=== PATIENT | female | born 1995 | race African-American/Black ===

== ENCOUNTER 2017-06-14 14:01 | Emergency (ER) | payer OTHER ==
[~2017-06-14] VITALS: Ht 157.5 cm; Wt 116.4 kg
[~2017-06-14 14:01] MED LIST: DIPH25 PO; NOCURR
[2017-06-14 17:30] VITALS: BP 125/74
== END 2017-06-14 17:50 | disposition home or self-care (01) ==
LOC: EMS 14:01
DX: J01.90 Acute sinusitis, unspecified (principal); R51 Headache
CPT/HCPCS: 99283

== ENCOUNTER 2018-10-19 10:42 | Emergency (ER) | payer OTHER ==
[~2018-10-19] VITALS: Ht 157.5 cm; Wt 118.2 kg
[2018-10-19] MEDS ORDERED: IBUPROFEN 100 MG/5 ML SUSPENSION UDCUP PO ONE (12:30)
[2018-10-19 12:54] VITALS: BP 122/69
== END 2018-10-19 12:59 | disposition home or self-care (01) ==
LOC: EMS 10:42
DX: J02.9 Acute pharyngitis, unspecified (principal)